=== PATIENT | male | born 1945 | race African-American/Black ===

== ENCOUNTER 2018-09-09 10:22 | Emergency (ER) | payer MEDICARE ==
[~2018-09-09] VITALS: Ht 172.7 cm; Wt 77.0 kg
[2018-09-09] MEDS ORDERED: SODIUM CHLORIDE 0.9% 1,000 ML IV ONE (10:32)
[2018-09-09] MEDS ORDERED: ENALAPRIL 1.25MG/ML VIAL 1ML IV ONE (10:45)
[2018-09-09] MEDS ORDERED: ONDANSETRON HCL 4MG/2ML INJ IV ONE (11:00)
[2018-09-09] MEDS ORDERED: MORPHINE SULFATE 4 MG/ML CPJ (NOT FOR IM USE) IV ONE (11:00)
[2018-09-09] MEDS ORDERED: ENALAPRIL 1.25MG/ML VIAL 1ML IV SCH (11:15)
[2018-09-09] MEDS ORDERED: CLONIDINE 0.1MG TABLET PO ONE (11:45)
[2018-09-09 12:18] LABS: BASOPHILS % 0.2 % (0.0-2.0); EOSINOPHILS % 0.2 % (0.0-5.0); HEMATOCRIT. 31.2 % (42.0-52.0); HEMOGLOBIN. 10.5 g/dL (14.0-18.0); LYMPHOCYTES % 16.5 % (20.0-50.0); MEAN CORPUSCULAR HEMOGLOBIN 34.5 pg (28.0-32.0); MEAN CORPUSCULAR VOLUME 102.3 fL (80.0-94.0); MEAN PLATELET VOLUME 10.2 fl (7.4-10.4); MONOCYTES % 14.6 % (2.0-8.0); NEUTROPHILS % 68.5 % (40.0-76.0); PLATELET 109 x1000/uL (130-400); RED BLOOD CELL COUNT 3.05 mill/uL (4.7-6.1); RED CELL DISTRIBUTION WIDTH 13.1 % (11.6-14.6)
[2018-09-09 12:29] LABS: CHLORIDE 104 mEq/L (98-107)
[2018-09-09 12:39] LABS: CREATINE KINASE 171 IU/L (39-308); CREATINE KINASE MB FRACTION 2.8 ng/mL (0.5-3.6)
[2018-09-09 13:10] LABS: CLARITY URINE CLEAR (CLEAR); COLOR URINE YELLOW (YELLOW); KETONES URINE NEGATIVE (NEGATIVE); LEUKOCYTE ESTERASE URINE NEGATIVE (NEGATIVE); NITRITE URINE NEGATIVE (NEGATIVE); OCCULT BLOOD URINE 1+ (NEGATIVE); PH URINE 5.5 (4.5-8.0); PROTEIN URINE 2+ (NEGATIVE); SPECIFIC GRAVITY URINE 1.013 (1.005-1.030)
[2018-09-09 13:16] VITALS: BP 195/117
[2018-09-09] MEDS ORDERED: LORAZEPAM 2MG/ML CPJ IV SCH (14:00)
== END 2018-09-09 16:40 | disposition short-term general hospital (02) ==
LOC: ER 10:22 → EDBEDREQ 13:35 → EDBEDREQTM 13:38 → ER 16:40 → CANBEDREQ 19:16
DX: S72.111A Displaced fracture of greater trochanter of right femur, initial encounter for closed fracture (principal); M97.01XA Periprosthetic fracture around internal prosthetic right hip joint, initial encounter; R55 Syncope and collapse; I11.0 Hypertensive heart disease with heart failure; I50.40 Unspecified combined systolic (congestive) and diastolic (congestive) heart failure; N28.9 Disorder of kidney and ureter, unspecified; F15.10 Other stimulant abuse, uncomplicated; X58.XXXA Exposure to other specified factors, initial encounter; Y93.89 Activity, other specified; Y92.89 Other specified places as the place of occurrence of the external cause; Y99.8 Other external cause status
CPT/HCPCS: 36415; 36569; 70450; 71045; 72192; 76937; 80053; 81003; 82550; 82553; 83880; 84484; 85025; 85730; 86850; 86900; 86901; 93005; 96361; 96374; 96375; 99285; C1725; J2270; J2405; J3490; J7030; J7050